=== PATIENT | female | born 1995 | race Caucasian/White ===

== ENCOUNTER 2017-01-06 23:58 | Emergency (ER) | payer OTHER ==
[~2017-01-06] VITALS: Ht 172.7 cm; Wt 36.7 kg
[2017-01-07 00:09] VITALS: TEMP 36.7; Ht 172.7 cm; Wt 36.7 kg
[2017-01-07] MEDS ORDERED: XYLOCAINE 1%/SOD BICARB 20 ML VIAL INFIL ONE (00:16)
--- NOTE | 2017-01-07 01:35 | EMERGENCY ROOM VISIT NOTE ---
History Report prepared by Raul: Boby Sigala Under the Supervision of: Dr. Uzair Auguste D.O. First contact with patient: 00:06 Chief Complaint: LACERATION/CUT (SUT/DERMABOND) Stated Complaint: LACERATION History of Present Illness The patient is a 21 year old female who presents to the Emergency Room via ambulance with complaints of sudden multiple lacerations on the right and left hands and fingers due to a fall beginning just prior to arrival. She states she went home and fell into a glass table in her hallway after a night of drinking. The patient associates a laceration to the right wrist, as well. She states her tetanus shot is up to date. Source of History: patient Onset: just prior to arrival Position: hand (bilateral), finger(s) Quality: other (multiple lacerations) Timing: other (sudden) Note: Associated symptoms: right wrist laceration, alcohol intoxication. Review of Systems See HPI for pertinent positives & negatives. A total of 10 systems reviewed and were otherwise negative. Past Medical & Surgical Medical Problems: (1) No pertinent past medical history Family History Patient reports no known family medical history. Social History Marital Status: single Occupation Status: [employer] student Current/Historical Medications No Active Prescriptions or Reported Meds Allergies Coded Allergies: No Known Allergies (Unverified , 01/07/17) Physical Exam Vital Signs Date Time Temp Pulse Resp B/P Pulse Ox O2 Delivery O2 Flow Rate FiO2 01/07/17 00:09 36.7 18 126/108 Physical Exam CONSTITUTIONAL/VITAL SIGNS: Reviewed / noted above. GENERAL: Non-toxic in appearance. Smell of alcohol on the breath. INTEGUMENTARY: 3 cm laceration to the right lateral wrist. 3 cm laceration to the right dorsal hand just proximal and medial to the fourth MCP joint. 3 cm laceration to the left middle finger dorsal surface overlying the PIP joint. 2.5 cm flap-like laceration to the fourth finger dorsal surface overlying the proximal phalanx. 2.5 cm laceration to the fourth finger dorsal surface overlying the middle phalanx. Warm, dry, and [place]. HEAD: Normocephalic. EYES: without scleral icterus or trauma. ENT/OROPHARYNX: clear and moist. LYMPHADENOPATHY/NECK: Is supple without lymphadenopathy or meningismus. RESPIRATORY: Lungs clear and equal. CARDIOVASCULAR: Regular rate and rhythm. GI/ABDOMEN: Soft and nontender. No organomegaly or pulsatile mass. No rebound or guarding. Normal bowel sounds. EXTREMITIES: Warm and well perfused. BACK: No CVA tenderness. NEUROLOGICAL: Intact without focal deficits. PSYCHIATRIC: normal affect. MUSCULOSKELETAL: Normally developed with good muscle tone. Medical Decision & Procedures Procedure Locations: Right lateral wrist. Right dorsal hand just proximal and medial to the fourth MCP joint. Left middle finger dorsal surface overlying the PIP joint. Fourth finger dorsal surface overlying the proximal phalanx. Fourth finger dorsal surface overlying the middle phalanx. Total length: 3 cm. 3 cm. 3 cm. 2.5 cm. 2.5 cm. Complexity: All simple. Verbal consent was obtained after the risks and benefits were explained, including but not limited to bleeding, scarring, infection, pain, and bone/joint /nerve damage. At this time, the risks of the procedure are less than the risks of NOT performing the procedure. A time out was taken and the correct patient and site identified. The skin was prepped with betadine. The target area was anesthetized with 1% lidocaine without epinephrine. The skin was re-prepped with betadine and a sterile field set. The wound was explored for foreign bodies and none found. Examination revealed no injury to deep structures such as tendons, bone, or significant blood vessels. Debridement was not performed. The right lateral wrist wound edges were approximated using 4, 4-0 simple interrupted nylon sutures. The right dorsal hand just proximal and medial to the fourth MCP joint wound edges were approximated using 3, 4-0 simple nylon sutures. The left middle finger dorsal surface overlying the PIP joint wound edges were approximated using 4, 4-0 simple interrupted nylon sutures. The fourth finger dorsal surface overlying the proximal phalanx wound edges were approximated using 2, 4-0 simple interrupted nylon sutures. The fourth finger dorsal surface overlying the middle phalanx wound edges were approximated using 3, 4-0 simple interrupted nylon sutures. Hemostasis and excellent approximation was achieved. Antibacterial ointment and a sterile dressing applied. Detailed wound care instructions and signs and symptoms of infection reviewed with the patient. No complications and the patient tolerated the procedure well. ED Course 1207: Previous medical records were reviewed. The patient was evaluated in room C11B. A complete history and physical examination was performed. Medical Decision Differential includes close head injury, intracranial bleed, facial trauma, cervical spine trauma, chest and thoracic trauma, abdominal and intra-abdominal trauma, spine neurologic trauma, extremity trauma. This is a 21-year-old female who presents to the ED after cutting her hands when she fell through a glass table. The lacerations are to the bilateral hands. Details noted above. There was no evidence of tendon injury based on exam as well as exploration of the wounds. No obvious neurovascular injury. The lacerations were cleaned and Betadine prep was used. Sterile technique was used to suture the wounds and approximate the wounds. Further details listed above. The patient tolerated procedure well. Lidocaine was used for local anesthesia. She will have to have her sutures removed in about 10 days. She can have this done here or at [facility] or her PCP. She states that her tetanus shot is up-to-date. There is no other injuries identified. Impression Primary Impression: Laceration of hand Scribe Attestation The scribe's documentation has been prepared under my direction and personally reviewed by me in its entirety. I confirm that the note above accurately reflects all work, treatment, procedures, and medical decision making performed by me. Departure Information Dispostion Home / Self-Care Prescriptions No Active Prescriptions or Reported Meds Referrals No Doctor, Assigned (PCP) Patient Instructions My [facility] Additional Instructions Have sutures removed in 10 days. Return here or follow-up with [facility]. Watch for signs of infection. If you develop redness or increasing pain return to the emergency department.
[2017-01-07 01:46] VITALS: BP 111/70; PULSE 96; O2SAT 98
== END 2017-01-07 01:47 | disposition home or self-care (01) ==
LOC: EDBD 23:58 → C.EDC 01-07
DX: S61.411A Laceration without foreign body of right hand, initial encounter (principal); S61.511A Laceration without foreign body of right wrist, initial encounter; S61.213A Laceration without foreign body of left middle finger without damage to nail, initial encounter; S61.214A Laceration without foreign body of right ring finger without damage to nail, initial encounter; S61.215A Laceration without foreign body of left ring finger without damage to nail, initial encounter; S61.412A Laceration without foreign body of left hand, initial encounter; W18.09XA Striking against other object with subsequent fall, initial encounter; Y92.019 Unspecified place in single-family (private) house as the place of occurrence of the external cause

== ENCOUNTER 2017-10-14 01:20 | Emergency (ER) | payer OTHER ==
[~2017-10-14] VITALS: Ht 172.7 cm; Wt 60.1 kg
[2017-10-14 01:21] VITALS: Ht 172.7 cm; Wt 60.1 kg
[2017-10-14 01:39] VITALS: O2SAT 98
[2017-10-14 02:10] LABS: CALCIUM 8.2 mg/dl (8.5-10.1); CREATININE 0.7 mg/dl (0.60-1.20); POTASSIUM 3.6 mmol/L (3.5-5.1)
--- NOTE | 2017-10-14 05:01 | EMERGENCY ROOM VISIT NOTE ---
History Report prepared by Raul: Kiara Dominguez Under the Supervision of: Dr. Norah Acevedo D.O. First contact with patient: 01:34 Chief Complaint: ALCOHOL OVERDOSE Stated Complaint: ALCOHOL OVERDOSE Nursing Triage Summary: Patient was at a fr[employer] and drank too much. Patients friends called 911. History of Present Illness The patient is a 22 year old female who presents to the Emergency Room with persistent alcohol intoxication starting [employer] WORK[employer]. The patient presents to the ED by EMS. The patient was drinking at a frat libertarian. She was vomiting. She denies any fall or injury. She denies any nausea or pain. The history is limited due to the patient's intoxication. 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 Past Medical & Surgical No significant past medical history. Family History No pertinent family history stated. Social History Smoking Status: Never Smoker Occupation Status: [email or web address] student Current/Historical Medications No Active Prescriptions or Reported Meds Allergies Coded Allergies: No Known Allergies (Unverified , 10/14/17) Physical Exam Vital Signs Date Time Temp Pulse Resp B/P (MAP) Pulse Ox O2 Delivery O2 Flow Rate FiO2 10/14/17 08:38 36.6 122 18 91/52 98 10/14/17 08:17 91/52 10/14/17 08:16 82/71 10/14/17 08:15 119 24 97 10/14/17 08:00 94/52 10/14/17 07:45 95 17 96 10/14/17 07:30 92/57 10/14/17 07:15 97 20 95 10/14/17 07:00 93/54 10/14/17 06:45 94 18 95 10/14/17 06:08 102/71 10/14/17 06:02 99/62 10/14/17 05:35 99 22 97 10/14/17 05:25 99 10/14/17 05:05 99 32 96 10/14/17 05:01 100/67 10/14/17 04:35 107 18 96 10/14/17 04:30 100/53 10/14/17 04:08 113 17 97 Room Air 10/14/17 04:00 89/50 10/14/17 03:38 102 17 96 10/14/17 03:33 95/49 10/14/17 03:30 102 23 97 Room Air 10/14/17 03:00 101 19 98 10/14/17 02:30 101 21 99 10/14/17 02:00 99 23 98 10/14/17 01:39 98 Room Air 10/14/17 01:23 108 10/14/17 01:21 36.6 107 18 106/81 98 Room Air 10/14/17 01:21 98 Room Air Physical Exam GENERAL: smells of EtOH, somnolent but arousable, well appearing, well nourished , no distress, non-toxic EYE EXAM: normal conjunctiva, PERRL and EOM's grossly intact OROPHARYNX: no exudate, no erythema, lips, buccal mucosa, and tongue normal and mucous membranes are moist NECK: supple, no nuchal rigidity, no adenopathy, non-tender CHEST: No evidence of trauma. LUNGS: Clear to auscultation. Normal chest wall mechanics HEART: no murmurs, S1 normal and S2 normal ABDOMEN: abdomen soft, non-tender, normo-active bowel sounds, no masses, no rebound or guarding. No evidence of trauma. BACK: Back is symmetrical on inspection and there is no deformity, no midline tenderness, no CVA tenderness. No evidence of trauma. SKIN: no rashes and no bruising UPPER EXTREMITIES: upper extremities are grossly normal. No evidence of trauma. LOWER EXTREMITIES: No pitting edema. No evidence of trauma. NEURO EXAM: Normal sensorium, cranial nerves II-XII grossly intact, normal speech, no gross weakness of arms, no gross weakness of legs. Medical Decision & Procedures Laboratory Results 10/14/17 01:25 Test 10/14/17 01:25 Anion Gap 6.0 mmol/L (3-11) Est Creatinine Clear Calc Drug Dose 121.6 ml/min Estimated GFR () 144.6 Estimated GFR (Non- 124.7 BUN/Creatinine Ratio 17.6 (10-20) Calcium Level 8.2 mg/dl (8.5-10.1) Ethyl Alcohol mg/dL 272.0 mg/dl (0-3) Laboratory results per my review. ED Course 0131: The patient was evaluated in room B12B. A complete history and physical exam was performed. 0635: Pt now awake, talking, denies complaints. Denies trauma last night. Pt tolerating sips of po. Medical Decision Differential diagnosis: Etiologies such as alcohol intoxication, toxicologic, infection, hypoglycemia, electrolyte abnormalities, cardiac sources, intracerebral event, neurologic, as well as others were entertained. Patient well-appearing here despite complaints, no evidence of trauma. On reexam patient more awake and alert, again denies trauma or any complaints. Discussed with patient legal age of alcohol ingestion, responsible drinking, symptoms to watch and return for, she verbalized understanding was agreeable to plan. Patient with no vomiting here, tolerating sips of by mouth, vital signs stable, I have a low clinical suspicion for any occult traumatic injury. Medication Reconcilliation Current Medication List: was personally reviewed by me Blood Pressure Screening Patient's blood pressure: Normal blood pressure Blood pressure disposition: Did not require urgent referral Impression Primary Impression: Alcoholic intoxication Scribe Attestation The scribe's documentation has been prepared under my direction and personally reviewed by me in its entirety. I confirm that the note above accurately reflects all work, treatment, procedures, and medical decision making performed by me. Departure Information Dispostion Home / Self-Care Prescriptions No Active Prescriptions or Reported Meds Patient Instructions My [facility] Additional Instructions Please do not drink alcohol until you are legally able to at age 23. Please drink alcohol responsibly. Do not drink and drive. Please always drink in a safe location. Please drink plenty of fluids to stay well-hydrated. If you have any new or concerning symptoms, please return the emergency room. Problem Qualifiers Primary Impression: Alcoholic intoxication Complication of substance-induced condition: uncomplicated Qualified Codes: F10.920 - Alcohol use, unspecified with intoxication, uncomplicated
[2017-10-14 08:38] VITALS: BP 91/52; PULSE 122; TEMP 36.6; O2SAT 98
== END 2017-10-14 08:39 | disposition home or self-care (01) ==
LOC: EDBD 01:20 → MERGE 01:22 → C.EDB 01:22
DX: F10.920 Alcohol use, unspecified with intoxication, uncomplicated (principal)

== ENCOUNTER 2017-10-28 17:50 | Emergency (ER) | payer OTHER ==
[2017-10-28 18:04] VITALS: O2SAT 96
[2017-10-28 18:52] LABS: BLOOD UREA NITROGEN 8 mg/dl (7-18); CALCIUM 8.2 mg/dl (8.5-10.1); CARBON DIOXIDE 25 mmol/L (21-32); CREATININE 0.72 mg/dl (0.60-1.20); GLUCOSE 116 mg/dl (70-99); POTASSIUM 2.9 mmol/L (3.5-5.1); SODIUM 140 mmol/L (136-145)
--- NOTE | 2017-10-28 19:26 | DIAGNOSTIC IMAGING REPORT ---
HEAD CT NONCONTRAST CT DOSE: 1136.41 mGy.cm HISTORY: Fall. Head injury. eval for bleed TECHNIQUE: Multiaxial CT images of the head were performed without the use of intravenous contrast. Automated exposure control was utilized for this study. A dose lowering technique was utilized adhering to the principles of ALARA. Comparison: None. Findings: Motion artifact. The paranasal sinuses and mastoid air cells are clear. The calvarium and skull base are intact. The ventricles and sulci are within normal limits. There is no mass, hematoma, midline shift, or acute infarct. Impression: Motion artifact. No definite acute intracranial abnormality. Electronically signed by: Jg Lundberg M.D. 10/28/2017 7:25 PM Dictated Date/Time: 10/28/2017 7:20 PM
--- NOTE | 2017-10-28 19:29 | DIAGNOSTIC IMAGING REPORT ---
CERVICAL SPINE CT CT DOSE: HISTORY: Fall. Neck pain. eval for fx TECHNIQUE: Multiaxial CT images of the cervical spine were performed and reformatted in the sagittal and coronal plane without the use of contrast. A dose lowering technique was utilized adhering to the principles of ALARA. COMPARISON: None. FINDINGS: There is reversal of the normal lordotic curvature. Motion artifact at the C5 level results in near nondiagnostic evaluation. However, there is no definite fracture or subluxation within the cervical spine. Prevertebral soft tissues and the C1-C2 interval are intact. Levoscoliosis which could be positional. No pneumothorax. IMPRESSION: Motion artifact. No definite fractures within the cervical spine. Electronically signed by: Jg Lundberg M.D. 10/28/2017 7:28 PM Dictated Date/Time: 10/28/2017 7:25 PM
[2017-10-28] MEDS ORDERED: ANTI-ANXIETY MED PO (19:50)
--- NOTE | 2017-10-29 00:24 | EMERGENCY ROOM VISIT NOTE ---
History Report prepared by Raul: Rolando Elizalde Under the Supervision of: Dr. Arvind Marks M.D. 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 The patient was brought into the ED by private vehicle and EMS made contact with the patient in the ED. Per EMS, the patient was drinking alcohol when she fell and struck her head. The patient had a period of unresponsiveness. The patient denies any chance of . She denies head pain or neck pain. She denies any underlying medical problems. It is unclear how much the patient has consumed or if the patient did any drugs. HPI is limited secondary to alcohol intoxication. 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 Review of Systems ROS is limited secondary to alcohol intoxication. Past Medical & Surgical Medical Problems: (1) No pertinent past medical history Family History Patient reports no known family medical history. Social History Smoking Status: Never Smoker Alcohol Use: heavy Marital Status: single Occupation Status: [employer] student Current/Historical Medications Scheduled [Anti-Anxiety Med], 1 TAB PO UD Allergies Coded Allergies: NO KNOWN DRUG ALLERGIES (Verified Allergy, Unknown, NONE, 10/28/17) Physical Exam Vital Signs Date Time Temp Pulse Resp B/P (MAP) Pulse Ox O2 Delivery O2 Flow Rate FiO2 10/28/17 23:43 114 20 107/55 98 Room Air 10/28/17 22:11 94 10/28/17 18:28 101 104/75 99 Room Air 10/28/17 18:10 99 10/28/17 18:10 95 108/ 99 Room Air 10/28/17 18:04 96 Room Air Physical Exam The physical exam is limited due to the patient's condition. Constitutional: Vital signs reviewed. Eyes: Pupils are equal round reactive to light. Conjunctiva are noninjected. ENT: No midline tenderness to cervical spine. Respiratory: Clear to auscultation bilaterally. Breath sounds are equal bilaterally. Cardiovascular: Regular rate and rhythm. No murmurs, rubs or gallops. GI: Soft, nondistended and nontender. Bowel sounds are present. Musculoskeletal: No peripheral edema. No evidence of trauma. Integumentary: No rashes, petechiae or purpura. Neurological: The patient is somnolent but arousable. She will answer simple yes and no questions at times. Psychiatric: Unable to assess. Medical Decision & Procedures ER Provider Diagnostic Interpretation: Radiology results as stated below per my review and the radiologist's interpretation: HEAD CT NONCONTRAST CT DOSE: 1136.41 mGy.cm HISTORY: Fall. Head injury. eval for bleed TECHNIQUE: Multiaxial CT images of the head were performed without the use of intravenous contrast. Automated exposure control was utilized for this study. A dose lowering technique was utilized adhering to the principles of ALARA. Comparison: None. Findings: Motion artifact. The paranasal sinuses and mastoid air cells are clear. The calvarium and skull base are intact. The ventricles and sulci are within normal limits. There is no mass, hematoma, midline shift, or acute infarct. Impression: Motion artifact. No definite acute intracranial abnormality. Electronically signed by: Jg Lundberg M.D. 10/28/2017 7:25 PM Dictated Date/Time: 10/28/2017 7:20 PM Laboratory Results 10/28/17 18:12 Test 10/28/17 18:12 Anion Gap 7.0 mmol/L (3-11) Estimated GFR () 139.7 Estimated GFR (Non- 120.6 BUN/Creatinine Ratio 10.7 (10-20) Calcium Level 8.2 mg/dl (8.5-10.1) Ethyl Alcohol mg/dL 259.0 mg/dl (0-3) Laboratory results as reviewed by me. ED Course 1755: The patient was evaluated in room B1. A complete history and physical exam was performed. 1758: The patient was moved to room B11B. 5: I reassessed the patient at this time. She is awake and alert. When asked how she is doing, she replied, "fantastic." When asked about the suicidal statements she made to the nurse, she declined further elaboration. 0015: She is still a patient. The patient was signed out to Dr. Medrano. Medical Decision This is a 22-year-old female who presents with altered mental status. Differential diagnosis includes alcohol intoxication, intracranial hemorrhage, concussion, skull fracture, metabolic derangement. I did perform a limited focused review of portions of the patient's old chart on the electronic medical record. The patient was recently seen October 14, 2017 for alcohol intoxication. I did evaluate the patient as noted above. The patient was placed on a continuous quality assurance monitor chassis. I did order and review the patient's blood work as noted in the electronic medical record. Her serum alcohol was over 260. Because of her reported injury I did order a CT of the head and cervical spine. I did review the images myself as well as the radiology report as described above. There is no evidence of intracranial hemorrhage or fracture. The nurse later reported to me that the patient had made some statements that were possibly suicidal in nature. The patient did not admit this to me although she does state that she has a history of depression. She was not willing to discuss this with me any further. I did explain to her that we we'll have to get a mental health evaluation with her once she was clinically sober. The patient was signed out to Dr. Medrano pending mental health evaluation and final disposition. Head Trauma GCS Score: 13 Medication Reconcilliation Current Medication List: was personally reviewed by me Blood Pressure Screening Patient's blood pressure: Normal blood pressure Impression Primary Impression: Acute alcohol intoxication Additional Impressions: Acute head injury Mood disorder Scribe Attestation The scribe's documentation has been prepared under my direct and personally reviewed by me in its entirety. I confirm that the note above accurately reflects all work, treatment, procedures, and medical decision making performed by me. Departure Information Referrals No Doctor, Assigned (PCP) Patient Instructions My [facility] Problem Qualifiers Primary Impression: Acute alcohol intoxication Complication of substance-induced condition: with unspecified complication Qualified Codes: F10.929 - Alcohol use, unspecified with intoxication, unspecified Additional Impressions: Acute head injury Encounter type: initial encounter Qualified Codes: S09.90XA - Unspecified injury of head, initial encounter
--- NOTE | 2017-10-29 04:34 | EMERGENCY ROOM VISIT NOTE ---
ED Visit Note First contact with patient: 02:01 This case was signed out to me at change of shift awaiting sobriety. Once the patient was more sober, she was evaluated by the psychiatric case reviewer in the emergency department. She felt that the patient was safe for discharge. She did not believe that she would meet criteria for inpatient psychiatric care. At that time, I spoke with the patient and has some concerns about safety planning upon discharge. She did not describe any support system to me. We did talk a little bit about her history of alcohol abuse. I discussed the case with the patient's father who also voiced concerns about her safety and who she would go with at discharge. I had the patient more formally evaluated by staff from [facility]. They also did not believe that she met criteria for inpatient care. She was able to safety plan stating that she would leave here with her brother and stay with him until the father arrives this afternoon. The case reviewer spoke with the patient's father again and he was satisfied with this disposition. The patient was encouraged to avoid such excessive alcohol use in the future. She was also encouraged to follow up closely with [employer] [facility]. She was given the number for [facility]
[2017-10-29 04:54] VITALS: BP 113/65; PULSE 88; O2SAT 99
== END 2017-10-29 05:07 | disposition home or self-care (01) ==
LOC: C.EDB 17:51
DX: F10.929 Alcohol use, unspecified with intoxication, unspecified (principal); S09.90XA Unspecified injury of head, initial encounter; F39 Unspecified mood [affective] disorder; W19.XXXA Unspecified fall, initial encounter; W22.8XXA Striking against or struck by other objects, initial encounter